=== PATIENT | male | born 1965 | race Two or more races ===

== ENCOUNTER → 2021-05-29 13:36 | Outpatient (BNVA) | payer BC, SELFPAY | PROVIDERS: PCP Internal Medicine; Referring Provider Internal Medicine; Visit Provider Internal Medicine Cardiovascular Disease | DX: R42 Dizziness and giddiness (principal); I10 Essential (primary) hypertension | CPT/HCPCS: 93005 ==

== ENCOUNTER → 2021-07-23 13:49 | Outpatient (REF) | payer BC, SELFPAY ==
--- NOTE | 2021-07-23 13:55 | ECG_ITS ---
Hook-up date: 2021-07-23 14:02:00 Duration: 42:44:00 Test Indications: R42 - Dizziness and giddiness Medications: 89487 QRS complexes * Ventricular ectopics which represent % of total QRS comp. 2 Supraventricular ectopics which represent <1 % of total QRS comp. * Paced QRS complexs which represent % of total QRS comp. VENTRICULAR ECTOPY * Isolated * Bigeminal Cycles * Couplets * Runs * Beats in Runs * Beats LONGEST at * BPM at :: -- * Beats FASTEST at * BPM at :: -- SUPRAVENTRICULAR ECTOPY 2 Isolated 0 Couplets 0 Runs 0 Beats in Runs * Beats LONGEST at * BPM at :: -- * Beats FASTEST at * BPM at :: -- HEART RATES 47 MIN at 09:12:19 2021-07-24 63 AVG 104 MAX at 20:41:43 2021-07-23 LONGEST RR 1.3440 secs at 09:27:29 2021-07-24 S-T LEVELS Channel 1 - 128 mm at 14:02:00 2021-07-23 - 128 mm at 14:02:00 2021-07-23 Channel 2 - 128 mm at 14:02:00 2021-07-23 - 128 mm at 14:02:00 2021-07-23 Channel 3 - 128 mm at 03:32:11 -- - 128 mm at 03:32:11 Underlying rhythm is sinus; Average ventricular rhythm 63/min; 47-104/min; No significant ectopy, tachy or morgan-arrhythmias; Overall, unremarkable holter. Referred By: Rell Bauman Overread By: MARGARITA DIEGO
== END ==
LOC: HO.CARD 13:49
PROVIDERS: PCP Internal Medicine; Visit Provider Internal Medicine Cardiovascular Disease
DX: R42 Dizziness and giddiness (principal)
CPT/HCPCS: 93226

== ENCOUNTER → 2021-07-31 13:02 | Outpatient (REF) | payer BC, SELFPAY ==
--- NOTE | 2021-07-31 13:04 | CA_ITS ---
Transthoracic Echocardiogram Patient (Last, First, Middle): Herbie Barr E Gender: Male Date of : 1965 Age: 55 Procedure Date: 07/31/2021 Procedure Type: Transthoracic Echocardiogram Location: OP Height: 175.26 cm Weight: 104.33 kg BSA: 2.19 m2 Heart Rate: bpm BP: 118 / 68 mmHg Senior Mechanical Estimator: DSBhavani Referring MD: Rell Bauman MD Electric Motor Controls Assembler: Rell Bauman MD Symptoms: R42 - Dizziness and giddiness Study Quality: Fair ECG Rhythm: Sinus Conclusions: - Essentially normal study Findings Left Ventricle Normal left ventricular size, thickness, and systolic function. The visually estimated ejection fraction is between 65-70%. Spectral Doppler is indicative of a normal filling pattern. Right Ventricle Normal right ventricular cavity size and systolic function. Atria The left atrium is normal in size. There is no evidence of interatrial shunt. The right atrium is normal in size. Aortic Valve Normal aortic valve structure and function. There is no aortic valve stenosis. There is no aortic valve regurgitation. Mitral Valve Normal mitral valve structure and function. There is trace mitral valve regurgitation. There is no mitral valve stenosis. Tricuspid Valve Likely normal tricuspid valve structure and function. There is trace tricuspid valve regurgitation. The right ventricular systolic pressure is normal. The right ventricular systolic pressure is 27 mmHg. Normal right atrial pressure. There is no evidence of pulmonary hypertension. Great Vessels All visible segments of the aorta are normal in size. The pulmonary artery was not well visualized. Venous The inferior vena cava is normal in size and collapses greater than 50% with inspiration. Pericardium/Pleural There is no evidence of pericardial effusion. Prior Study Comparison No prior study available for comparison. Measurements 2D Linear Measurements IVSd: 0.85 0.6-0.9/0.6-1.0 cm LVIDd: 4.93 3.9-5.3/4.2-5.9 cm LVIDd Index: 2.25 2.4-3.2/2.2-3.1 cm/m2 LVIDs: 2.63 2.0-3.6 cm LVPWd: 0.98 0.7-1.1 cm Ao Root: 3.30 2.1-3.5 cm LA Diam: 4.00 2.7-3.8/3.0-4.0 cm LAIDs Index: 1.83 1.5-2.3 cm/m2 LV Mass: 260.50 67-162/88-224 g LV Mass Index: 118.95 43-95/49-115 g/m2 LVOT Diam: 2.10 3.0+(-)1.3 cm 2D Systolic Function EF 4C: 68.20 >55% EF 2C: 70.70 >55% EF BiP: 69.80 >55% Mitral Valve MV Pk E: 0.70 MV PK A: 0.44 MV Decel Time: 168.00 E/A: 1.60 E'Lateral: 9.57 E'Medial: 7.51 E/E' Med: 9.30 E/E' Lat: 7.30 PHT: 49.00 MVA PHT: 4.49 Decel [place]: 4.16 Aortic Valve AoV Pk Dylan: 1.14 AoV Pk Grad: 5.00 LVOT LVOT Pk Dylan: 0.84 LVOT Mn Dylan: 0.54 LVOT VTI: 0.19 LVOT Pk Grad: 3.00 LVOT Mn Grad: 1.00 LVOT Diam: 2.10 LVOT Area: 3.46 Diastolic Function MV Pk E: 0.70 MV Pk A: 0.44 E/A: 1.60 E'Medial: 7.51 E/E' Med: 9.30 E' Laterial: 9.57 E/E' Lat: 7.30 Right Ventricle TAPSE (mm): 1.87 TVS' Dylan: 12.20 Tricuspid Valve TR Pk Dylan: 2.46 TR Pk Grad: 24.00 RA Press: 3.00 RVSP: 27.00 Great Vessels Aorta Ao Root-2D: 3.30 2.0-3.7 cm Updated in Other Vendor System with Status of Final Rell Bauman MD electronically signed on 08/01/2021 1:02:27 PM with status of Final
== END ==
LOC: HO.CARD 13:02
PROVIDERS: PCP Internal Medicine; Visit Provider Internal Medicine Cardiovascular Disease
DX: R42 Dizziness and giddiness (principal); I10 Essential (primary) hypertension; I45.10 Unspecified right bundle-branch block
CPT/HCPCS: 93306

== ENCOUNTER → 2021-08-21 13:35 | Outpatient (BNVA) | payer BC, SELFPAY | PROVIDERS: PCP Internal Medicine; Referring Provider Internal Medicine; Visit Provider Internal Medicine Cardiovascular Disease ==

== ENCOUNTER → 2022-09-14 12:43 | Outpatient (BNVA) | payer BC, SELFPAY | PROVIDERS: PCP Internal Medicine; Referring Provider Internal Medicine; Visit Provider Internal Medicine Cardiovascular Disease | DX: I25.10 Atherosclerotic heart disease of native coronary artery without angina pectoris (principal); I10 Essential (primary) hypertension | CPT/HCPCS: 93005 ==

== ENCOUNTER 2023-04-15 16:14 | Outpatient (REF) | payer BC, SELFPAY ==
[2023-04-15 17:38] LABS: MANUAL DIFF FLAG NO
[2023-04-15 17:52] LABS: Basophils Percent Auto 0.3 % (0-2); Eosinophils Absolute Auto 0.1 X10*3/uL (0.0-0.4); Eosinophils Percent Auto 0.9 % (0-4); Hematocrit 41.1 % (42.0-52.0); Hemoglobin 14.3 g/dl (14.0-18.0); Imm Gran Abs Auto 0.04 X10*3/uL (0.00-0.03); Imm Gran Pct Auto 0.4 % (0.0-0.4); Lymphocytes Absolute Auto 2.1 X10*3/uL (1.2-4.9); Lymphocytes Percent Auto 18.8 % (20-40); Mean Corpuscular HGB Conc 34.8 g/dl (31.0-36.0); Mean Corpuscular Hemoglobin 31.6 pg (27.0-33.0); Mean Corpuscular Volume 90.7 fL (80.0-98.0); Mean Platelet Volume 10.1 fL (9.4-12.4); Monocytes Absolute Auto 1.1 X10*3/uL (0.1-1.2); Monocytes Percent Auto 9.5 % (2-11); Neutrophils Absolute Auto 7.8 x10*3/uL (2.0-8.3); Neutrophils Percent Auto 70.1 % (45-73); Platelet Count 196 X10*3/uL (160-400); Red Blood Count 4.53 X10*6/uL (4.60-5.80); Red Cell Distribution Width 12.3 % (11.0-16.0)
[2023-04-15 17:59] LABS: Alanine Aminotransferase 25 U/L (0-40); Albumin Level 4.2 g/dL (3.5-5.0); Alkaline Phosphatase 76 U/L (39-117); Anion Gap 14 (12-20); Aspartate Amino Transferase 24 U/L (5-37); Bilirubin Direct 0.2 mg/dL (0.0-0.5); Bilirubin Total 0.4 mg/dL (0.0-1.0); Blood Urea Nitrogen 15 mg/dL (9-16); Calcium 9.7 mg/dL (8.4-10.2); Carbon Dioxide 24 mmol/L (22-29); Chloride 107 mmol/L (96-108); Cholesterol 114 mg/dL (<200); Estimated Glomerular Filt Rate > 60; Glucose Random 97 mg/dL (60-115); HDL Cholesterol 42 mg/dL (>40); LDL Cholesterol Calculated 63 mg/dL (<100); Potassium 4.6 mmol/L (3.3-5.1); Sodium 140 mmol/L (135-145); Triglycerides 48 mg/dL (<150)
[2023-04-16 05:49] LABS: Estimated Average Glucose 108 mg/dL; Hemoglobin A1c % 5.4 % (<6.0)
== END 2023-04-15 16:15 | disposition home or self-care (01) ==
LOC: HO.HHCL 16:14
PROVIDERS: Visit Provider Internal Medicine
DX: Z00.00 Encounter for general adult medical examination without abnormal findings (principal); I10 Essential (primary) hypertension
CPT/HCPCS: 36415; 80048; 80061; 80076; 83036; 85025

== ENCOUNTER 2023-11-11 11:50 | Outpatient (AMB) | payer BC, SELFPAY ==
--- NOTE | 2023-11-11 12:47 | A.OFFVIS_ITS ---
Vital Signs 11/11/23 12:48 Height 5 ft 11 in Weight 231 lb 7.766 oz BMI 32.3 BP 118/78 Blood Pressure Location Lt brachial Position Sitting Pulse 65 Intake Visit Reasons: overdue 1yr fu w/ ekg Intake Note: Follow-up 1 year follow-up with ekg feeling good sometimes has palpitations Crozer Operator Required: No Allergies No Known Allergies Allergy (Verified 09/14/22 12:48) Medication List - Last Reconciled 11/11/23 by Rell Bauman MD amlodipine-valsartan 5-160 mg 1 tab PO DAILY bisoprolol fumarate 5 mg PO DAILY famotidine 10 mg PO BEDTIME rosuvastatin 20 mg PO DAILY zolpidem 5 mg PO BEDTIME PRN HPI Comments Details: Herbie comes for follow-up. He has been doing well from cardiac perspective. Denies any exertional chest pain or shortness of breath. Says occasionally he gets symptoms of palpitation with rapid heart rate. He denies any associated symptoms with it. Symptoms are not very bothersome on life-limiting. He is taking all his medications. He says blood pressure is very well controlled. His last LDL was well optimized at 63 mg/dL. [facility] Medical History HTN (hypertension) Right bundle branch block (RBBB) determined by electrocardiography Family History Mother No problems noted. Father No problems noted. Social History Patient Tobacco Use Status: Never used Tobacco Review of Systems Const Denies chills, Denies fatigue, Denies fever(s), Denies frequent falls, Denies weakness, Denies weight gain and Denies weight loss ENT Denies dizziness Card Denies chest pain, Denies leg edema, Denies lightheadedness, Denies palpitations, Denies dyspnea, Denies dyspnea on exertion, Denies orthopnea and Denies other (loss of consciousness) Resp Denies cough, Denies dyspnea and Denies dyspnea on exertion GI Denies hematochezia and Denies change in stool character Musc Denies abnormal gait, Denies muscle weakness, Denies numbness, Denies radiating pain into limb and Denies tingling Neuro Denies abnormal gait, Denies dizziness, Denies frequent falls, Denies numbness, Denies tingling and Denies weakness Endo Denies fatigue and Denies palpitations Physical Exam Vital Signs: Last Vital Signs Pulse 65 11/11/23 12:48 BP 118/78 11/11/23 12:48 BMI result Body Mass Index 32.3 Const General: cooperative, comfortable, no acute distress, alert, awake and well groomed Nutritional Appearance: obese Orientation/consciousness: patient oriented x3 Limitations: no limitations Neck Neck: Yes trachea midline, Yes supple and Yes no JVD Chest Chest palpation & inspection: normal inspection of the chest Resp Effort & Inspection: normal respiratory effort Auscultation: clear to auscultation bilaterally Cardio Jugular venous distension: no JVD Palpation: normal PMI Rate: regular rate Rhythm: regular rhythm Heart sounds: S1 normal heart sound present, S2 normal heart sound present, no click, no gallops, no murmurs and no rubs GI Auscultation: normal bowel sounds Skin General skin exam: no rashes or lesions noted Neuro General: patient oriented x3 and no focal motor deficits Extrem General: Yes no clubbing, cyanosis or edema Psych Appearance: grossly normal Office Procedures EKG Details: EKG shows normal sinus rhythm with right bundle-branch block, unchanged from before [id number], Complete Assessment & Plan Assessment & Plan (1) CAD (coronary artery disease): Code(s): I25.10 - Atherosclerotic heart disease of craig coronary artery without angina pectoris Category: Medical Plan: Coronary atherosclerosis based on coronary calcium score. Currently having no symptoms at high workload. Continue current aggressive medical therapy. Aggressive blood pressure control was advised. Continue high-intensity statin therapy with LDL well optimized at this point time. Importance of medical therapy was discussed. Low-dose aspirin therapy is advised. Advise lifestyle modification with continued exercise and weight loss program. Annual lipid check should be pursued. Advised to call me with any new symptoms. (2) HTN (hypertension): Code(s): I10 - Essential (primary) hypertension Category: Medical Plan: Hypertension which is well optimized advised to monitor blood pressure at home maintain a log. Goal blood pressure less than 130/84. Low-salt diet was discussed. Advised to participate in regular physical activity and weight loss program. (3) Palpitations: Code(s): R00.2 - Palpitations Plan: Very sporadic symptoms of palpitation which could represent PVCs and/or SVT. Atrial fibrillation likely although the episodes are very short lasting. Unlikely to be caught on any form of monitoring. Advised to call me with worsening symptoms. Stress mitigation strategies avoidance of stimulants was discussed. Follow up in the clinic in 1 year's time, sooner p.r.n.. Thank you for allowing me to partake in his care Coding Level of Care Code Est Pt Level 4 (99104) Diagnoses CAD (coronary artery disease) I25.10 HTN (hypertension) I10 Palpitations R00.2 CPT Codes EKG - CPT: 65223-[id number], Complete ([id number])
[2023-11-11 12:48] VITALS: BP 118/78; PULSE 65; BMI 32.3
== END 2023-11-11 13:10 | disposition home or self-care (01) ==
PROVIDERS: PCP Internal Medicine; Visit Provider Internal Medicine Cardiovascular Disease
DX: I25.10 Atherosclerotic heart disease of native coronary artery without angina pectoris (principal); I10 Essential (primary) hypertension; R00.2 Palpitations
CPT/HCPCS: 93010; 99214

== ENCOUNTER → 2023-11-11 11:50 | Outpatient (BNVA) | payer BC, SELFPAY | PROVIDERS: PCP Internal Medicine; Visit Provider Internal Medicine Cardiovascular Disease | DX: I25.10 Atherosclerotic heart disease of native coronary artery without angina pectoris (principal); I10 Essential (primary) hypertension; R00.2 Palpitations | CPT/HCPCS: 93005 ==

== ENCOUNTER 2024-05-16 09:26 | Outpatient (AMB) | payer BC, SELFPAY ==
--- NOTE | 2024-05-16 09:27 | A.OFFVIS_ITS ---
Vital Signs 05/16/24 09:28 Height 5 ft 11 in Weight 231 lb BMI 32.2 Intake Visit Reasons: [employer] [employer] referral for VV Intake Note: [employer]/ VV for bilateral LE that have been bothersome for years. Pt states he does have pain. Flour Broker Required: No Accompanied by: Self / Same As Patient Allergies No Known Allergies Allergy (Verified 05/16/24 09:32) HPI HPI [employer] referral for VV: Details: Herbie, a very pleasant 58-year-old male patient, presenting today on a referral from his PCP for varicose veins, that has been occurring for the last several years. Complaints include intermittent pain over varicosities and slight swelling of lower extremities . It has been affecting their daily activities including walking and physical activity. It is noted more so in right more than left leg. He is a nondiabetic. He is a nonsmoker. He states he is very active, walking and doing physical activity. Patient denies any previous venous surgery or injections. Patient denies any history of DVT/ PE. Patient denies any history of phlebitis. Trial of compression includes - elevation when sitting. They now present for vascular evaluation regarding their varicose veins. [facility] Medical History HTN (hypertension) Right bundle branch block (RBBB) determined by electrocardiography Family History Mother No problems noted. Father No problems noted. Social History Patient Tobacco Use Status: Never used Tobacco Review of Systems Const Reports as per HPI and Denies weakness ENT Reports Normal hearing present and Denies dizziness Card Reports as per HPI, Denies chest pain, Denies chest pain at rest, Denies chest pain with activity, Denies dyspnea and Denies dyspnea on exertion Resp Reports as per HPI, Denies cough, Denies dyspnea and Denies dyspnea on exertion GI Reports as per HPI, Denies abdominal pain, Denies nausea and Denies vomiting Musc Denies numbness Skin/Breast Reports as per HPI, Denies erythema and Denies wounds Neuro Reports Normal hearing present, Denies dizziness, Denies numbness, Denies Sensory deficit (Neuro) and Denies weakness Psych Reports no additional complaints Endo Reports no additional complaints Physical Exam Vital Signs: BMI result Body Mass Index 32.2 Const General: healthy appearing and no acute distress Orientation/consciousness: patient oriented x3 HEENT Head: Yes normal to inspection Ears: hearing grossly normal bilaterally Mouth: Normal oral and palatal mucosa present Resp Effort & Inspection: normal respiratory effort and able to speak in complete sentences Auscultation: clear to auscultation bilaterally Cardio Jugular venous distension: no JVD Rate: regular rate Rhythm: regular rhythm Heart sounds: S1 normal heart sound present and S2 normal heart sound present Bruits: no abdominal aortic bruits, no carotid bruits, no femoral bruits and no renal bruits Peripheral pulses: Peripheral pulses 2+ throughout GI Inspection: Yes normal to inspection Palpation (GI): No Abdominal aortic bruit present Skin General skin exam: no rashes or lesions noted Wounds: no wounds Hair: normal Neuro General: patient oriented x3 Cranial nerves: Yes Normal hearing present Cognition (Neuro): normal cognition Gait exam (Neuro): Normal gait present Motor exam (neuro): 5/5 motor strength present throughout Sensory Exam: No Sensory deficit (Neuro) Extrem Other: Right lower extremity: Tortuosity noted of the tibial area, approximally 8 cm. Not painful to palpation. Trace peripheral edema noted. Palpable DP pulses. Left lower extremity: Small tortuosity noted on the lateral aspect of the knee, approximately 4 cm. Not painful to palpation. Trace peripheral edema noted. Palpable DP pulses. CEAP: C - 3 E - primary A - superficial P - reflux General: Yes normal to inspection, Yes full ROM, Yes capillary refill normal and Yes normal gait Assessment & Plan Assessment & Plan (1) Varicose veins of both lower extremities with inflammation: Code(s): I83.11 - Varicose veins of right lower extremity with inflammation; I83.12 - Varicose veins of left lower extremity with inflammation Category: Medical Plan: Herbie is presenting today as a referral from his PCP for several years of varicose veins on his bilateral lower extremities, right more than left. In short, the patient has evidence of venous insufficiency. I have discussed the pathophysiology with the patient. In addition I have provided informational material regarding venous disease to the patient. We have discussed co nservative measures including compression, elevation, and exercise. I have also provided a handout regarding appropriate use of compression stockings and where to purchase good compression stockings as well. I have taken the liberty of ordering venous insufficiency testing with the patient. They will follow up with me after testing. We discussed the importance of continuing his physical activity and walking. The patient had an opportunity to ask questions regarding the treatment plan. All questions were answered. No major barriers to understanding were identified. The patient expressed understanding and agreement with the above treatment plan. The patient is aware they should contact our office by phone for worsening of the current condition or the appearance of new symptoms. Thank you for allowing me to participate in the vascular care of this patient. If you have any questions or concerns regarding the treatment for the above condition please do not hesitate to contact me. The office telephone contact is [phone]. This note is constructed using voice recognition software. While every effort has been made to ensure accuracy, garden center manager errors may have been included. Thank you for allowing me to participate in the care of your patient. Yours sincerely, DEMETRICE Cornelius Orders: Orders US venous duplex LE BI 1 Week I83.11 - Varicose veins of right lower extremity with inflammation, I83.12 - Varicose veins of left lower extremity with infla mmation Coding Level of Care Code New Pt Level 4 (80062) Diagnoses Varicose veins of both lower extremities with inflammation I83.11; I83.12
[2024-05-16 09:28] VITALS: BMI 32.2
== END 2024-05-16 09:47 | disposition home or self-care (01) ==
PROVIDERS: PCP Internal Medicine; Visit Provider Physician Assistant Surgical
DX: I83.11 Varicose veins of right lower extremity with inflammation (principal); I83.12 Varicose veins of left lower extremity with inflammation
CPT/HCPCS: 99204

== ENCOUNTER → 2024-05-16 09:26 | Outpatient (BNVA) | payer BC, SELFPAY | PROVIDERS: PCP Internal Medicine; Visit Provider Physician Assistant Surgical ==

== ENCOUNTER 2024-07-05 12:54 | Outpatient (REF) | payer BC, SELFPAY ==
--- NOTE | ~2024-07-05 | US_ITS ---
CLINICAL HISTORY: I83.11 - Varicose veins of right lower extremity with inflammation Venous duplex Doppler ultrasound lower extremities and venous mapping study Comparison: None Findings: The bilateral greater saphenous and small saphenous veins are patent. There is no evidence for deep venous thrombosis with normal flow compression augmentation bilateral common femoral, femoral and popliteal veins. There are small varicose veins within the right thigh. There are no fluid collections. IMPRESSION: Negative for bilateral lower extremity deep vein thrombosis. Venous mapping study with patent veins, see worksheet which is attached to the images for measurements Small varicose veins within the right thigh This document has been electronically signed by: Akbar Cid MD on 07/07/2024 07:09:48
== END 2024-07-05 12:55 | disposition home or self-care (01) ==
LOC: HO.US 12:54
PROVIDERS: PCP Internal Medicine; Visit Provider Physician Assistant Surgical
DX: I83.11 Varicose veins of right lower extremity with inflammation (principal); I83.12 Varicose veins of left lower extremity with inflammation
CPT/HCPCS: 93970

== ENCOUNTER → 2024-07-05 12:55 | Outpatient (BNV) | payer BC, SELFPAY | PROVIDERS: PCP Internal Medicine; Visit Provider Radiology Diagnostic Radiology | DX: I83.11 Varicose veins of right lower extremity with inflammation (principal) | CPT/HCPCS: 93970 ==

== ENCOUNTER 2024-07-18 09:59 | Outpatient (AMB) | payer BC, SELFPAY ==
--- NOTE | 2024-07-18 10:13 | A.OFFVIS_ITS ---
Vital Signs 07/18/24 10:14 Height 5 ft 11 in Weight 231 lb BMI 32.2 Intake Visit Reasons: follow up s/p 07/07/24 Intake Note: follow up 07/07/24 for bilateral LE VV. Pt states Right LE is worse than LEft LE. Accompanied by: Self / Same As Patient Allergies No Known Allergies Allergy (Verified 07/18/24 10:17) HPI HPI follow up s/p 07/07/24: Details: Herbie is presenting today as a follow up to venous insufficiency ultrasound, performed on 07/05/24. He continues to endorse intermittent pain over the varicosities as well as swelling of his bilateral lower extremities. He recently came back from vacation in a warmer location and states that the swelling was not as bad. He states he has been wearing compression stockings, at night. [facility] Medical History HTN (hypertension) Right bundle branch block (RBBB) determined by electrocardiography Family History Mother No problems noted. Father No problems noted. Social History Patient Tobacco Use Status: Never used Tobacco Review of Systems Const Reports as per HPI and Denies weakness ENT Reports Normal hearing present and Denies dizziness Card Reports as per HPI, Denies chest pain, Denies chest pain at rest, Denies chest pain with activity, Denies dyspnea and Denies dyspnea on exertion Resp Reports as per HPI, Denies cough, Denies dyspnea and Denies dyspnea on exertion GI Reports as per HPI, Denies abdominal pain, Denies nausea and Denies vomiting Musc Denies numbness Skin/Breast Reports as per HPI, Denies erythema and Denies wounds Neuro Reports Normal hearing present, Denies dizziness, Denies numbness, Denies Sensory deficit (Neuro) and Denies weakness Psych Reports no additional complaints Endo Reports no additional complaints Physical Exam Vital Signs: BMI result Body Mass Index 32.2 Const General: healthy appearing and no acute distress Orientation/consciousness: patient oriented x3 HEENT Head: Yes normal to inspection Ears: hearing grossly normal bilaterally Mouth: Normal oral and palatal mucosa present Resp Effort & Inspection: normal respiratory effort and able to speak in complete sentences Auscultation: clear to auscultation bilaterally Cardio Jugular venous distension: no JVD Rate: regular rate Rhythm: regular rhythm Heart sounds: S1 normal heart sound present and S2 normal heart sound present Bruits: no abdominal aortic bruits, no carotid bruits, no femoral bruits and no renal bruits Peripheral pulses: Peripheral pulses 2+ throughout GI Inspection: Yes normal to inspection Palpation (GI): No Abdominal aortic bruit present Skin General skin exam: no rashes or lesions noted Wounds: no wounds Hair: normal Neuro General: patient oriented x3 Cranial nerves: Yes Normal hearing present Cognition (Neuro): normal cognition Gait exam (Neuro): Normal gait present Motor exam (neuro): 5/5 motor strength present throughout Sensory Exam: No Sensory deficit (Neuro) Extrem Other: Right lower extremity: Tortuosity noted of the tibial area, approximally 8 cm. Not painful to palpation. Trace peripheral edema noted. Palpable DP pulses. Left lower extremity: Small tortuosity noted on the lateral aspect of the knee, approximately 4 cm. Not painful to palpation. Trace peripheral edema noted. Palpable DP pulses General: Yes normal to inspection, Yes full ROM, Yes capillary refill normal and Yes normal gait Results Reviewed Results Reviewed: Brief summary of venous insufficiency testing is as follows: right great saphenous vein: negative right small saphenous vein: negative right accessory vein: none present left great saphenous vein: negative left small saphenous vein: negative left accessory vein: none present Please note there is no evidence of any venous aneurysms or significant tortuosity Assessment & Plan Assessment & Plan (1) Varicose veins of both lower extremities with inflammation: Code(s): I83.11 - Varicose veins of right lower extremity with inflammation; I83.12 - Varicose veins of left lower extremity with inflammation Category: Medical Plan: Apgars presenting today as a follow up to venous insufficiency ultrasound, performed on 07/05/2024. There was no venous insufficiency found on ultrasound. He does continue with intermittent swelling and painful varicosities, not worsening. He states he is wearing his compression stockings but at night. He does continue to elevate his legs, with relief. We discussed in continue with compression stockings, but wear them during the day for a max of 8-12 hours. We discussed continuing with elevation as well as physical activity. We discussed the importance of a well-balanced diet. We discussed that if the pain and swelling continues he should reach out to his PCP for further evaluation. Thank you for allowing us to participate in the patient's care. If there are any questions or concerns, please do not hesitate to reach out to us. Coding Level of Care Code Est Pt Level 4 (76556) Diagnoses Varicose veins of both lower extremities with inflammation I83.11; I83.12 Comment Review of venous insufficiency ultrasound
[2024-07-18 10:14] VITALS: BMI 32.2
== END 2024-07-18 11:08 | disposition home or self-care (01) ==
PROVIDERS: PCP Internal Medicine; Visit Provider Physician Assistant Surgical
DX: I83.11 Varicose veins of right lower extremity with inflammation (principal); I83.12 Varicose veins of left lower extremity with inflammation
CPT/HCPCS: 99214

== ENCOUNTER 2024-11-09 10:46 | Outpatient (AMB) | payer BC, SELFPAY ==
[2024-11-09 10:50] VITALS: BP 120/82; PULSE 64; BMI 33.5
--- NOTE | 2024-11-09 10:50 | A.OFFVIS_ITS ---
Vital Signs 11/09/24 10:50 Height 5 ft 11 in Weight 240 lb 4.862 oz BMI 33.5 BP 120/82 Blood Pressure Location Lt brachial Position Sitting Pulse 64 Intake Visit Reasons: 1 yr follow up Intake Note: 1 year follow-up with ekg vicente adorno has some palpitations Allergies No Known Allergies Allergy (Verified 07/18/24 10:17) Medication List - Last Reconciled 11/09/24 by Rell Bauman MD alprazolam 0.5 mg PO BEDTIME PRN amlodipine-valsartan 5-160 mg 1 tab PO DAILY aspirin (Adult Aspirin Regimen) 81 mg PO DAILY bisoprolol fumarate 5 mg PO DAILY famotidine 10 mg PO BEDTIME zolpidem 5 mg PO BEDTIME PRN HPI Comments Details: Herbie comes for follow-up. He has been doing well from cardiac perspective. Denies any exertional symptoms of chest pain or shortness of breath. He says he has however not exercising much as he is busy with work as well as prepping for more professional exams. Currently taking all his medication except for statin for unclear reasons. He has not had any exertional chest pain or shortness of breath. Denies any palpitations, irregular heartbeat, syncope. No neurologic symptoms. [facility] Medical History HTN (hypertension) Right bundle branch block (RBBB) determined by electrocardiography Family History Mother No problems noted. Father No problems noted. Social History Patient Tobacco Use Status: Never used Tobacco Review of Systems Const Denies chills, Denies fatigue, Denies fever(s), Denies frequent falls, Denies weakness, Denies weight gain and Denies weight loss ENT Denies dizziness Card Denies chest pain, Denies leg edema, Denies lightheadedness, Denies palpitations, Denies dyspnea, Denies dyspnea on exertion, Denies orthopnea and Denies other (loss of consciousness) Resp Denies cough, Denies dyspnea and Denies dyspnea on exertion GI Denies hematochezia and Denies change in stool character Musc Denies abnormal gait, Denies muscle weakness, Denies numbness, Denies radiating pain into limb and Denies tingling Neuro Denies abnormal gait, Denies dizziness, Denies frequent falls, Denies numbness, Denies tingling and Denies weakness Endo Denies fatigue and Denies palpitations Physical Exam Vital Signs: Last Vital Signs Pulse 64 11/09/24 10:50 BP 120/82 11/09/24 10:50 BMI result Body Mass Index 33.5 Const General: cooperative, comfortable, no acute distress, alert, awake and well groomed Nutritional Appearance: obese Orientation/consciousness: patient oriented x3 Limitations: no limitations Neck Neck: Yes trachea midline, Yes supple and Yes no JVD Chest Chest palpation & inspection: normal inspection of the chest Resp Effort & Inspection: normal respiratory effort Auscultation: clear to auscultation bilaterally Cardio Jugular venous distension: no JVD Palpation: normal PMI Rate: regular rate Rhythm: regular rhythm Heart sounds: S1 normal heart sound present, S2 normal heart sound present, no click, no gallops, no murmurs and no rubs GI Auscultation: normal bowel sounds Skin General skin exam: no rashes or lesions noted Neuro General: patient oriented x3 and no focal motor deficits Extrem General: Yes no clubbing, cyanosis or edema Psych Appearance: grossly normal Office Procedures EKG Details: EKG shows normal sinus rhythm with right bundle-branch block, unchanged from before [id number], Complete Assessment & Plan Assessment & Plan (1) CAD (coronary artery disease): Code(s): I25.10 - Atherosclerotic heart disease of inupiat coronary artery without angina pectoris Category: Medical Plan: Coronary artery disease based on the findings of coronary calcium score on his CT. He has no current symptoms. No further workup such as stress test is required at this point time. Advised to continue aggressive medical therapy. Continue aggressive blood pressure control, see below. I have restarted his atorvastatin 40 mg daily and advise follow-up lipid panel in 3 months. Target goal LDL less than 70 mg/dL. Encouraged to increase activity level and participate in regular lifestyle modification as well as weight loss program. (2) HTN (hypertension): Code(s): I10 - Essential (primary) hypertension Category: Medical Plan: Hypertension which appears to be well optimized on current therapy with bisoprolol and amlodipine valsartan combination. Importance of good medical therapy and blood pressure control was discussed advised to monitor blood pressure at home maintain a log. Low-salt diet was discussed. Target goal blood pressure less than 130/84. Advised to participate in aggressive lifestyle modification. Will follow up in the clinic in 1 year's time, sooner p.r.n.. Thank you for allowing me to partake in his care Orders: Orders Lipid Panel 3 Months I25.10 - Atherosclerotic heart disease of inupiat coronary artery without angina pectoris CRP High Sensitivity 3 Months E78.5 - Hyperlipidemia, unspecified, I25.10 - Atherosclerotic heart disease of inupiat coronary artery without angina pectoris Medications: New atorvastatin 40 mg PO DAILY 90 tabs 3RF Coding Level of Care Code Est Pt Level 4 (48028) Complex EM visit Add On G2211 Diagnoses CAD (coronary artery disease) I25.10 HTN (hypertension) I10 CPT Codes EKG - CPT: 92909-[id number], Complete ([id number])
--- OUTSIDE RECORDS SUMMARY | 2024-11-09 11:29 | XMS_ITS | Encounter Summary ---
Author Organization [employer] Address [address] [facility] [address] [place] [address] Care Team Providers Care Dietitian Teacher Name Role Phone Karen Miranda MD Primary Care Provide r Reason for Visit * Reason Comments Med Refill Encounter Details Date Type Department Care Team ([facility] st Contact Info) Description 06/04/2023 Refill [facility]S [address] [place], [place] [phone] Name, MD Emmanuel [address] [place] [address] Erectile dysfunction, unspecified erectile dysfunction type Social History Tobacco Use Types Packs/Day Years Used Date Smoking Tobacco: Never Passive Smoke Exposure: Never Smokeless Tobacco: Never Depression Answer Date Recorded Patient Health Questionnaire-9 Score 0 04/15/2023 Patient Health Questionnaire-9 Score 0 04/15/2023 Last PHQ-9: Questionnaire Data Not on file 1 Housing Stability Answer Date Recorded What is your housing situation today? I have sarkis andujar 04/07/[address] you li ve. Do you have problems with any of the following? None of the above 04/07/2023 Food Insecurity Answer Date Recorded Within the past 12 months, y ou worried that your food would run out before you got money to buy more: Never True 04/07/2023 Within the past 12 months,th e food you bought just didn't last and you didn't have enough money to get more: Never True Transportation Answer Date Recorded In the past 12 months, has l ack of transportation kept you from medical appts, meetings, work or from getting things needed for daily living? No 04/07/2023 Utilities Answer Date Recorded In the past 12 months, has t he electric, gas, oil or water company threatened to shut off services in your home? No 04/07/2023 Depression Answer Date Recorded Patient Health Questionnaire-2 Score 0 04/15/2023 Sex and Gender Information Value Date Recorded Sex Assigned at Male 04/20/2022 10:36 AM EDT Legal Sex Male 10:36 AM EDT Gender Identity Male 04/20/2022 10:36 AM EDT Sexual Orientation Choose not to disclose 2021 10:36 AM EDT documented as of this encounter Plan of Treatment Not on file documented as of this encounter Visit Diagnoses Diagnosis Erectile dysfunction, unspecified erectile dysfunction type documented in this encounter Additional Health Concerns Assessment Noted Time PHQ-9 Depression Total Score: 0 04/15/20 23 2:50 PM EDT documented as of this encounter Care Teams Dietitian Teacher Relationship Specialty Start Date End Date Karen Miranda MD [address] [place] [phone] PCP - General Family Medicine 08/25/19 documented as of this encounter
--- OUTSIDE RECORDS SUMMARY | 2024-11-09 11:29 | XMS_ITS | Clinical Summary ---
Author Organization [email or web address] Address [address] [facility] [address] [place] [address] Care Team Providers Care Concrete Pipe Maker Name Role Phone Karen Miranda MD Primary Care Provide r Allergies No known active allergies Medications rosuvastatin (Crestor) 40 MG tabletIndications :Coronary artery disease involving tribe coronary artery of tribe heart without angina pectoris Take 1 tablet (40 mg) by mouth Once per day. 30 tablet 11 4 03/27/20 25 Active aspirin 81 MG EC tabletIndications :Coronary artery disease involving tribe coronary artery of tribe heart without angina pectoris Take 1 tablet (81 mg) by mouth Once per day. 30 tablet 11 4 03/27/20 25 Active omeprazole (PriLOSEC) [address] capsuleIndication s:Gastroesophagea l reflux disease with esophagitis without hemorrhage Take 1 capsule (20 mg) by mouth before breakfast. Do not crush or chew. 30 capsule 11 4 03/27/20 25 Active escitalopram (Lexapro) 10 MG tabletIndications :Anxiety TAKE 1 TABLET BY MOUTH EVERY DAY 30 tablet 2 5 Active bisoprolol (Zebeta) 5 MG tabletIndications :Primary hypertension TAKE 1 TABLET BY MOUTH EVERY DAY 30 tablet 2 5 Active amLODIPine-valsar olivas (Exforge) 5-160 MG tabletIndications :Primary hypertension TAKE 1 TABLET BY MOUTH EVERY MORNING 30 tablet 2 5 Active tadalafil (Cialis) 5 MG tabletIndications :Erectile dysfunction, unspecified erectile dysfunction type TAKE 1 TABLET BY MOUTH EVERY MORNING 10 tablet 5 Active zolpidem (Ambien) 5 MG tabletIndications :Primary insomnia TAKE 1 TABLET BY MOUTH EVERY DAY AT BEDTIME 30 tablet 5 Active ALPRAZolam (Xanax) 0.5 MG tabletIndications :Anxiety TAKE 1 TABLET BY MOUTH EVERY DAY AT BEDTIME NEEDED FOR ANXIETY 28 tablet 5 Active Active Problems Problem Noted Date Diagnosed Date Coronary artery disease invo lving tribe coronary artery of tribe heart without angina pectoris 03/24/2024 Varicose veins of lower extremity 03/24/2024 Depression with anxiety 05/11/2023 Assessment & Plan (05/11/2023 12:02 PM EST): Stable c/w same interventions GERD (gastroesophageal reflux disease) Assessment & Plan (03/27/2024 4:56 PM EDT): I advise patient to avoid NSAIDs, spicy and acid food, I advise to eat at the same time every day, I advise to elevate the head of the bed and take medications as prescribe Assessment & Plan (05/11/2023 12:01 PM EST): I advise patient to avoid NSAIDs, spicy and acid food, I advise to eat at the same time every day, I advise to elevate the head of the bed and take medications as prescribe Assessment & Plan (04/15/2023 4:28 PM EDT): I advise patient to avoid NSAIDs, spicy and acid food, I advise to eat at the same time every day, I advise to elevate the head of the bed and take medications as prescribe Encounter for preventive care 04/15/2023 Assessment & Plan (04/15/2023 4:30 PM EDT): See HPI Colon cancer screening 04/15/2023 Erectile dysfunction 04/15/2023 Plantar fasciitis 12/16/2022 Obesity 12/16/2022 Assessment & Plan (04/15/2023 4:29 PM EDT): Today extensive discussion was done about life style modifications I advise healthy diet (low calorie) and cardiovascular exercise Hypertensive disorder 12/16/2022 Assessment & Plan (03/27/2024 4:56 PM EDT): Maintenance: BMP: up to date Lipid Panel: up to date ASCVD Risk:on rosuvastatin 40mg daily and ASA 81mg daily - Aerobic exercise to reduce BP. Initial goal of 30 min walk 3-5x/week. Increase as tolerated. - low-sodium diet (goal: <2g/day) and heart healthy diet such as DASH to reduce BP and prevent ASCVD. - Home BP monitoring 1-2 x day with goal of <140/90. - Seek immediate medical attention for chest pain, palpitations, SOB, syncope, or sudden changes in mental status. - Do not change or discontinue current prescriptions without first consulting health care provider Assessment & Plan (05/11/2023 12:01 PM EST): - Aerobic exercise to reduce BP. Initial goal of 30 min walk 3-5x/week. Increase as tolerated. - low-sodium diet (goal: <2g/day) and heart healthy diet such as DASH to reduce BP and prevent ASCVD. - Home BP monitoring 1-2 x day with goal of <140/90. - Seek immediate medical attention for chest pain, palpitations, SOB, syncope, or sudden changes in mental status. - Do not change or discontinue current prescriptions without first consulting health care provider Assessment & Plan (04/15/2023 4:27 PM EDT): - Aerobic exercise to reduce BP. Initial goal of 30 min walk 3-5x/week. Increase as tolerated. - low-sodium diet (goal: <2g/day) and heart healthy diet such as DASH to reduce BP and prevent ASCVD. - Home BP monitoring 1-2 x day with goal of <140/90. - Seek immediate medical attention for chest pain, palpitations, SOB, syncope, or sudden changes in mental status. - Do not change or discontinue current prescriptions without first consulting health care provider Chest pain 12/16/2022 Anxiety 12/16/2022 Assessment & Plan (03/27/2024 4:58 PM EDT): I will prescribed for patient alprazolam but I will de-escalate instead of 1mg daily 0.5mg daily, I will go up on escitalopram to 20mg daily and c/w zolpidem PRN for insomnia for now Patient will be contacted by [facility] nurse Encounters Date Type Department Care Team Description 10/13/2024 Refill [facility] MED & PEDS [address] [place] [address] Karen Miranda MD Anxiety 10/03/2024 Refill [facility] P[facility] [address] [place] [address] Karen Miranda MD Primary insomnia; Anxiety 10/03/2024 Refill [facility] [address] [place] [phone] Karen Miranda MD Anxiety; Primary insomnia [address] [phone] Karen Miranda MD December09/14/2024 Patient Outreach [facility] [address] [place] [phone] Karen Miranda MD Pre-visit Planning ((Unable to reach for PVP screening, LVM)) 08/29/2024 Refill [facility] P[facility] [address] [place], [place] [phone] Karen Miranda MD Primary insomnia 08/29/2024 Refill [facility] [address] [place], [place] [phone] Karen Miranda MD Anxiety from Last 3 Months Immunizations Immunization Administration Dates Next Due Influenza Injectable Quadriv alant Preservative Free IIV4 MDCK 04/15/2020 Influenza injectable quadrivalent preservative f ree 04/15/2023,02/06/2021 Zoster, Recombinant 07/11/2020,04/15/2020 Social History Tobacco Use Types Packs/Day Years Used Date Smoking Tobacco: Never Passive Smoke Exposure: Never Smokeless Tobacco: Never Tobacco Cessation:Counseling Given: Not Answered Alcohol Use Standard Drinks/Week Comments Never 0 (1 standard drink = 0.6 oz pur e alcohol) Depression Answer Date Recorded Patient Health Questionnaire-9 [...] not to disclose 2021 10:36 AM EDT Last Filed Vital Signs Vital Sign Reading Time Taken Comments Blood Pressure 147/64 03/24/2024 1:13 PM EDT w m eds Pulse 64 03/24/2024 1:13 PM EDT Temperature 36.2 ??C (97.1 ??F) 03/24/2024 1:13 PM ED T Respiratory Rate 16 03/24/2024 1:13 PM EDT Oxygen Saturation 97% 03/24/2024 1:13 PM EDT Inhaled Oxygen Concentration - - Weight 111 kg (243 lb 12.8 oz) 03/24/2024 1:13 P M EDT Height 175.3 cm (5' 9 ) 03/24/2024 1:13 PM EDT Body Mass Index 36 03/24/2024 1:13 PM EDT Plan of Treatment Health Maintenance Due Date Last Done Comments CT Colonography 1966 Colonoscopy 1966 FIT 1966 FOBT 1966 Sigmoidoscopy 1966 Disability Screening 1966 Alcohol/Substance Use Screening 1978 Hepatitis C Screening 1984 DTaP/Tdap/Td Vaccines (1 - Tdap) 1985 Hepatitis B Vaccines (1 of 3 - 19+ 3-dose series) 1985 Pneumococcal Vaccine: 50+ Years (1 of 2 - PCV) 1985 COVID-19 Vaccine (2023-2 5 season) 2024 07/24/2021, 12/04/2020, 11/06/2020 Influenza Vaccine (#1) 2024 , 02/06/2021, 04/15/2020 SDOH Screening 04/07/2024 04/07/2023 Depression Screening 04/15/2024 04/15/2023, 04/15/2023 Tobacco Screening 03/24/2025 03/24/2024 Colorectal Cancer Screening 05/06/2026 FIT DNA/Cologuard 05/06/2026 05/06/2023 Lipid Panel 04/15/2028 04/15/2023, 04/04/2021 RSV Patients and Patients Aged 60 years or older (1 - 1-dose 75+ series) 2041 HIV Screening Completed 08/25/2019 Zoster Vaccines Completed 07/11/2020, 04/15/2020 HIB Vaccines Aged Out No longer eligi ble based on patient's age to complete this topic HPV Vaccines Aged Out No longer eligi ble based on patient's age to complete this topic Hepatitis A Vaccines Aged Out No long er eligible based on patient's age to complete this topic IPV Vaccines Aged Out No longer eligi ble based on patient's age to complete this topic Meningococcal B Vaccine Aged Out No l onger eligible based on patient's age to complete this topic Meningococcal Vaccine Aged Out No sweetie micaela eligible based on patient's age to complete this topic RSV under 20 months Aged Out No longe r eligible based on patient's age to complete this topic Rotavirus Vaccines Aged Out No longer eligible based on patient's age to complete this topic Procedures Procedure Name Priority Date/Time Associated Diagnosis Comments LAB COLOGUARD?? COLON CANCER SCREEN Routine 05/06/2023 2:20 PM EST Colon cancer screening LIPID PANEL, STANDARD Routine 04/15/2023 4:18 PM EDT Encounter for preventive care ZZZ HISTORICAL HIV AB/AG Routine 08/25/2019 12:10 PM EST from Last 3 Months or Most Recently Relevant to Health Maintenance Results * Cologuard?? colon cancer screening (05/06/2023 2:20 PM EST) Cologuard Result Negative Negative 05/19/20 7:18 PM EST [facility] (CLIA #:[id number]) Comment: NEGATIVE TEST RESULT. A negative Cologuard result indicates a low likelihood that a colorectal cancer (CRC) or advanced adenoma (adenomatous polyps with more advanced pre-malignant features) ??is present. The chance that a person with a negative Cologuard test has a colorectal cancer is less than 1 in 1500 (negative predictive value >99.9%) or has an ??advanced adenoma is less than ??5.3% (negative predictive value 94.7%). These data are based on a prospective cross-sectional study of 10,000 individuals at average risk for colorectal cancer who were screened with both Cologuard and colonoscopy. (Nabor Dominguez. et al, N Engl J Med 2014;370(14):1286- 1297) The normal value (reference range) for this assay is negative. COLOGUARD RE-SCREENING RECOMMENDATION: Periodic colorectal cancer screening is an important part of preventive healthcare for asymptomatic individuals at average risk for colorectal cancer. ??Following a negative Cologuard result, the [place] [employer] Society and U.S. Multi-Society Task Force screening guidelines recommend a Cologuard re-screening interval of 3 years. References: [place] [employer] Guideline for Colorectal Cancer Screening: https://www.cancer.org/cancer/irrjf-gxyovj-xgmdey/earnjofvn-bckjehfdh-twcjtsm/ac s-rec ommendations.html.; Alonso DK, Beau VICKERS, Phyllis ReyesK, Colorectal Cancer Screening: Recommendations for Physicians and Patients from the U.S. Multi-Society Task Force on Colorectal Cancer Screening , Am J Gastroenterology 2017; 112:9279-8545. TEST DESCRIPTION: Composite algorithmic analysis of stool DNA-biomarkers with hemoglobin immunoassay. ?? Quantitative values of individual biomarkers are not reportable and are not associated with individual biomarker result reference ranges. Cologuard is intended for colorectal cancer screening of adults of either sex, 45 years or older, who are at average-risk for colorectal cancer (CRC). Cologuard has been approved for use by the U.S. FDA. The performance of Cologuard was established in a cross sectional study of average-risk adults aged 50-84. Cologuard performance in patients ages 45 to 49 years was estimated by sub-group analysis of near-age groups. Colonoscopies performed for a positive result may find as the most clinically significant lesion: colorectal cancer [4.0%], advanced adenoma (including sessile serrated polyps greater than or equal to 1cm diameter) [20%] or non- advanced adenoma [31%]; or no colorectal neoplasia [45%]. These estimates are derived from a prospective cross-sectional screening study of 10,000 individuals at average risk for colorectal cancer who were screened with both Cologuard and colonoscopy. (Nabor Cat al, N Engl J Med 2014;370(14):9425-4954.) Cologuard may produce a false negative or false positive result (no colorectal cancer or precancerous polyp present at colonoscopy follow up). A negative Cologuard test result does not guarantee the absence of CRC or advanced adenoma (pre-cancer). The current Cologuard screening interval is every 3 years. ([place] [employer] and U.S. Multi-Society Task Force). Cologuard performance data in a 10,000 patient pivotal study using colonoscopy as the reference method can be accessed at the following location: www.[employer]/results. Additional description of the Cologuard test process, warnings and precautions can be found at www.[employer]zzoolard.com. Stool specimen (specimen) 05/06/2023 2:20 PM EST 05/07/2023 7:51 PM EST Karen Dominguez MD LAB MOLECULAR DIAGNOS TICS ORDERABLES Final Result [facility] (CLIA #:[id number]) [address] [place] [address], [place] [phone] * Lipid Panel, Standard (04/15/2023 4:18 PM EDT) Triglycerides 48 <150 mg/dL [facility] Comment:Desirable Triglyceri de: less than 150 mg/dLBorderline High Triglyceride 150-199 mg/dLHigh Triglyceride: 200-499 mg/dLVery High Triglyceride: greater than or equal to 5OO mg/dL Cholesterol 114 <200 mg/dL [facility] Comment:Desirable Cholestero l: less than 200 mg/dLBorderline High Cholesterol: 200-239 mg/dLHigh Cholesterol: greater than 239 mg/dL LDL Cholesterol Calculated 63 <100 mg/dL [facility] Comment:Desirable LDL: less than 100 mg/dLNear Optimal/Above Optimal LDL: 110- 129 mg/dLBorderline High LDL: 130-159 mg/dLHigh LDL: 160-189 mg/dLVery High LDL: greater than or equal to 190 mg/dL HDL Cholesterol 42 >40 mg/dL [facility] Comment:Desirable HDL: grea ter than 40 mg/dL Note: This HDL assay may give artificially low results in patients with liver disease. Blood Venous blood specimen / Unknown 04/15/2023 4:18 PM EDT 04/15/2023 5:36 PM EDT Karen Dominguez MD LAB BLOOD ORDERABLES Final Result [facility] [address] [place] [phone] * HIV AB/AG (08/25/2019 12:10 PM EST) HIV AG/AB NONREACTIVE [facility] Comment: HIV-1 p24 Ag and/or HIV-1/HIV-2 Ab not detected. ?? A test result that is nonreactive does not exclude the possibility of exposure to or infection with HIV-1 and/or HIV-2. Nonreactive results in this assay for individuals with prior exposure to HIV-1 and/or HIV-2 may be due to antigen and antibody levels that are below the limit of detection of this assay. ?? [employer] HIV Ag/Ab Combo assay result and supplemental assay results should be interpreted in conjunction with the patient's clinical presentation, history and other laboratory results. ??If the results are inconsistent with clinical evidence, additional testing is suggested to confirm the result. 08/25/2019 12:1 0 PM EST Karen Dominguez MD HISTORICAL/NON ORDERA BLE LABS Final Result [facility] [address] from Last 3 Months or Most Recently Relevant to Health Maintenance Insurance [facility] PPO Care Teams Concrete Pipe Maker Relationship Specialty Start Date End Date Karen Miranda MD [address] [place] [address] PCP - General Family Medicine 08/25/19
--- OUTSIDE RECORDS SUMMARY | 2024-11-09 11:29 | XMS_ITS | Encounter Summary ---
Author Organization [employer] Address [address] [facility] [address] [place] [address] Care Team Providers Care Beauty Operator Apprentice Name Role Phone Karen Miranda MD Primary Care Provide r Encounter Details Date Type Department Care Team ([facility] st Contact Info) Description 10/03/2024 Refill [facility] MEDICINE [address] [place], [place] [phone] Karen Miranda MD [address] [place], [place] [phone] Anxiety; Primary insomnia Social History Tobacco Use Types Packs/Day Years Used Date Smoking Tobacco: Never Passive Smoke Exposure: Never Smokeless Tobacco: Never Alcohol Use Standard Drinks/Week Comments Never 0 [...] as of this encounter Visit Diagnoses Diagnosis Anxiety Anxiety state, unspecified Primary insomnia Persistent disorder of initiating or maintaining sleep documented in this encounter Additional Health Concerns Assessment Noted Time PHQ-9 Depression Total Score: 0 04/15/20 23 2:50 PM EDT documented as of this encounter Care Teams Beauty Operator Apprentice Relationship Specialty Start Date End Date Karen Miranda MD [address] [place] [id number] PCP - General Family Medicine 08/25/19 documented as of this encounter
--- OUTSIDE RECORDS SUMMARY | 2024-11-09 11:29 | XMS_ITS | Encounter Summary ---
Author Organization [employer] Address [address] [facility] [address] [place] [address] Care Team Providers Care Chemical Detection Expert Name Role Phone Karen Miranda MD Primary Care Provide r Reason for Visit * Reason Comments Med Refill Encounter Details Date Type Department Care Team ([facility] st Contact Info) Description 10/13/2024 Refill [facility] [address] [place], [place] [phone] Karen Miranda MD [address] [place] [address] Anxiety Social History Tobacco Use Types Packs/Day Years [...] is your housing situation today? I have sarkissulma andujar 04/07/[address] you [...] Visit Diagnoses Diagnosis Anxiety Anxiety state, unspecified documented in this encounter Additional Health Concerns Assessment Noted Time PHQ-9 Depression Total Score: 0 04/15/20 23 2:50 PM EDT documented as of this encounter Care Teams Chemical Detection Expert Relationship Specialty Start Date End Date Karen Miranda MD [address] [place] [phone] PCP - General Family Medicine 08/25/19 documented as of this encounter
--- OUTSIDE RECORDS SUMMARY | 2024-11-09 11:29 | XMS_ITS | Encounter Summary ---
Author Organization [employer] Address [address] [facility] [address] [place] [address] Care Team Providers Care Access Manager Name Role Phone Karen Miranda MD Primary Care Provide r Reason for Visit * Reason Onset Date Comments Med Refill 06/04/2023 Encounter Details Date Type Department Care Team ([facility] st Contact Info) Description 06/04/2023 Telephone [facility] MED[facility]INE [address] [place], [place] [phone] Karen Miranda MD [address] [place] [phone] Med Refill Social History Tobacco Use Types Packs/Day Years [...] AM EDT documented as of this encounter Miscellaneous Notes * Telephone Encounter - Binta Seaman LPN - 06/04/2023 1:01 PM EST Medications pended to PCP. * Telephone Encounter - Stanley Pollack - 06/04/2023 12:10 PM EST Tc from pt requesting mediation refill for tadalafil (Cialis) 5 MG tablet and zolpidem (Ambien) 5 MG tablet. documented in this encounter Plan of Treatment Not on file documented as of this encounter Visit Diagnoses Not on filedocumented in this encounter Additional Health Concerns Assessment Noted Time PHQ-9 Depression Total Score: 0 04/15/20 23 2:50 PM EDT documented as of this encounter Care Teams Access Manager Relationship Specialty Start Date End Date Karen Miranda MD [address] [place] [phone] PCP - General Family Medicine 08/25/19 documented as of this encounter
== END 2024-11-09 11:13 | disposition home or self-care (01) ==
LOC: HO.HCS 10:46
PROVIDERS: PCP Internal Medicine; Visit Provider Internal Medicine Cardiovascular Disease
DX: I25.10 Atherosclerotic heart disease of native coronary artery without angina pectoris (principal); I10 Essential (primary) hypertension
CPT/HCPCS: 93010; 99214

== ENCOUNTER → 2024-11-09 10:46 | Outpatient (BNVA) | payer BC, SELFPAY | PROVIDERS: PCP Internal Medicine; Visit Provider Internal Medicine Cardiovascular Disease | DX: I25.10 Atherosclerotic heart disease of native coronary artery without angina pectoris (principal) | CPT/HCPCS: 93005 ==